=== PATIENT | female | born 2000 | race African-American/Black ===

== ENCOUNTER 2021-03-26 12:49 | Emergency (ER) | payer OTHER, SELFPAY ==
--- NOTE | ~2021-03-26 | XR_ITS ---
EXAMINATION: XR foot RT min 3V EXAM DATE: 03/26/2021 13:08 INDICATION: Fall 5 days ago. Pain top of right foot. Initial encounter. TECHNIQUE: Right foot dorsoplantar, lateral and oblique projections obtained and reviewed. There is no prior study for comparison. FINDINGS: Right metatarsal bones unremarkable. There are no acute fractures or dislocations identif ied. There is no subcutaneous gas. The soft tissue is unremarkable. There are no radiopaque forei gn bodies. IMPRESSION: No acute osseous findings. Reviewed, dictated and finalized at location B. IMPRESSION: No acute osseous findings.
--- NOTE | 2021-03-26 13:04 | ED.LOWEXIN ---
HPI - Extremity Injury (Lower) General Chief Complaint: Extremity Injury, Lower Stated Complaint: injured knees and foot Source: patient Mode of arrival: ambulatory Limitations: no limitations History of Present Illness HPI Narrative: Andrew Teresa is a 20 yo female who fell 5 days ago and has pain on top of R foot. She wants her foot to be X-rayed as it has not improved.Mild bruising across dorsum, more pain with walking on the lateral side of R foot Related Data Allergies Allergy/AdvReac Type Severity Reaction Status Date / Time No Known Allergies Allergy Verified 08/10/19 16:21 Review of Systems Review of Systems: CONSTITUTIONAL: Denies fever, chills, sweats. EYES: Denies visual changes, redness, discharge. ENT: Denies rhinorrhea, congestion, sore throat, otalgia. CARDIOVASCULAR: Denies chest pain, palpitations, edema. RESPIRATORY: Denies dyspnea, wheezing, cough GASTROINTESTINAL: Denies abdominal pain, nausea, vomiting, diarrhea. GENITOURINARY: Denies dysuria, hematuria, abnormal discharge SKIN: Denies rash or itching. NEUROLOGIC: Denies numbness, or focal weakness. PSYCHIATRIC: Denies anxiety or depression. Right foot pain on top of foot PMFSH Past Medical History Medical History No acute medical problems Family History Family History Other Hypertension Social History Social History Smoking status: Never smoker Alcohol intake: never Substance use: never Gender identity (if verbalized by the patient): Female Comments At time of signature, I agree with nursing past medical, surgical, social and family history. There is no relevant family history pertinent to the presenting complaint. Exam Narrative: GENERAL: This is a well-nourished, well-developed patient, in mild distress. HEAD: normocephalic, atraumatic. EYES: PERRL. Sclera clear/white. Vision is grossly intact. EARS: External ears normal, . Hearing grossly intact. NOSE: External nose normal without nasal discharge, nares without redness, no rhinorrhea. THROAT: Mucous membranes moist, NECK: Neck supple, non-tender CARDIOVASCULAR: Regular rate and rhythm without murmurs, gallops, or rubs. RESPIRATORY: Clear to auscultation. Breath sounds equal bilaterally. No wheezes, rales, or rhonchi. GASTROINTESTINAL: Abdomen soft, SKIN: warm, intact with no suspicious lesions or rash, good texture and turgor. NEURO: awake, alert, and oriented to person, place and time. There were no obvious focal neurologic abnormalities. Steady gait EXTREMITIES: Normal range of motion. Pain on lateral side of foot with walking mild bruising on dorsum lateral side able to move toes good color good pulse. Bilateral knee abrasions that are healing, band aids placed across the abrasions BACK: Nontender without deformity Course Course Emergency Course: Patient comes 5 days post fall were abraded needs and pain in the right top of foot X-ray of right foot shows no abnormalities no fractures no subluxation Marlo wrap to right foot encouraged to take Motrin, and wear supportive shoes for pain Vital Signs Vital signs: Vital Signs Temperature 98.9 F 03/26/21 13:10 Pulse Rate 74 03/26/21 13:10 Respiratory Rate 16 03/26/21 13:10 Blood Pressure 136/88 03/26/21 13:10 Pulse Oximetry 100 03/26/21 13:10 Temperature 98.9 F 03/26/21 13:10 Pulse Rate 74 03/26/21 13:10 Respiratory Rate 16 03/26/21 13:10 Blood Pressure 136/88 03/26/21 13:10 Pulse Oximetry 100 03/26/21 13:10 MDM - Extremity Injury (Lower) Differential Diagnosis Differential diagnosis: Likely ankle sprain and strain, puncture wound of foot, fracture of toe and ankle fracture Critical Care Time Critical Care Time Critical Care Time: No Discharge Plan Discharge Clinical Impression: Foot sprain Qualifiers: [facility]
[2021-03-26 13:10] VITALS: BP 136/88; PULSE 74; RESP 16; TEMP 37.2; O2SAT 100
== END 2021-03-26 13:29 | disposition home or self-care (01) ==
PROVIDERS: Emergency Provider Nurse Practitioner
DX: S93.601A Unspecified sprain of right foot, initial encounter (principal); W19.XXXA Unspecified fall, initial encounter
CPT/HCPCS: 73630; 99213; G0463

== ENCOUNTER 2021-05-18 17:59 | Emergency (ER) | payer OTHER, SELFPAY ==
[2021-05-18 18:05] VITALS: BP 118/62; PULSE 75; RESP 12; TEMP 37.2; O2SAT 100
--- NOTE | 2021-05-18 18:53 | ED.URI ---
HPI - URI/Sore Throat General Chief Complaint: Upper Respiratory Infection Stated Complaint: no voice Source: patient and RN notes reviewed Mode of arrival: ambulatory History of Present Illness HPI Narrative: This is a 20-year-old female presented to urgent care with complaints of hoarseness since . She does not have any fevers runny nose cough and has been gargling at home with salt water with no results. The patient denies SOB, CP, palpitation, extremity numbness, lightheadedness, dizziness, constipation, diarrhea, chills, or fever. Related Data Allergies Allergy/AdvReac Type Severity Reaction Status Date / Time No Known Allergies Allergy Verified 08/10/19 16:21 Review of Systems Review of Systems: A 14 organ system Review of Systems was performed and pertinent positives included in the HPI, otherwise remaining ROS is negative. [facility] Past Medical History Medical History No acute medical problems Family History Family History Other Hypertension Social History Social History Smoking status: Never smoker Alcohol intake: never Substance use: never Gender identity (if verbalized by the patient): Female Exam Narrative: GENERAL: This is a well-nourished, well-developed patient, in no apparent distress. HEAD: normocephalic, atraumatic. EYES: PERRL. Sclera clear/white. Vision is grossly intact. EARS: External ears normal, auditory canals clear and without drainage, TMs normal without perforation. Hearing grossly intact. NOSE: External nose normal with no obvious nasal discharge, nares without redness, no rhinorrhea. THROAT: Mucous membranes moist, posterior pharynx edematous. Hoarseness NECK: Neck supple, non-tender without lymphadenopathy, masses or thyromegaly. CARDIOVASCULAR: Regular rate and rhythm without murmurs, gallops, or rubs. RESPIRATORY: Clear to auscultation. Breath sounds equal bilaterally. No wheezes, rales, or rhonchi. GASTROINTESTINAL: Abdomen soft, non-tender, nondistended. Bowel sounds are active. No hepato-splenomegaly, or palpable masses. No guarding. SKIN: warm, intact with no suspicious lesions or rash, good texture and turgor. NEURO: awake, alert, and oriented to person, place and time. There were no obvious focal neurologic abnormalities. Steady gait EXTREMITIES: Normal range of motion. No edema. No calf tenderness. Negative Homans sign bilaterally. BACK: Nontender without deformity or crepitance. No flank tenderness. Course Course Emergency Course: Patient will be given dexamethasone 20 mg for 2 days Vital Signs Vital signs: Vital Signs Temperature 99.0 F 05/18/21 18:05 Pulse Rate 75 05/18/21 18:05 Respiratory Rate 12 05/18/21 18:05 Blood Pressure 118/62 05/18/21 18:05 Pulse Oximetry 100 05/18/21 18:05 Temperature 99.0 F 05/18/21 18:05 Pulse Rate 75 05/18/21 18:05 Respiratory Rate 12 05/18/21 18:05 Blood Pressure 118/62 05/18/21 18:05 Pulse Oximetry 100 05/18/21 18:05 MDM - URI/Sore Throat Differential Diagnosis Differential diagnosis: Likely upper respiratory infection, croup, influenza and other (Laryngitis) Discharge Plan Discharge Clinical Impression: Laryngitis Patient Disposition: Home, Self-Care Condition: Stable Instructions: Antibiotic Form, Croup (ED) Additional Instructions: How is croup treated? ? The main treatments for croup are aimed at making sure that your child is getting enough oxygen. To do that, the doctor or nurse might give your child: ?Moist air or oxygen to breathe ?Medicines to reduce swelling or open up the airways The doctor will probably not offer antibiotics, because croup is caused by viruses, and antibiotics do not work on viruses. Prescriptions: New dexamethasone 20 mg tablet 20 mg PO DAILY 2 Days Q
== END 2021-05-18 18:57 | disposition home or self-care (01) ==
PROVIDERS: Emergency Provider Nurse Practitioner
DX: J04.0 Acute laryngitis (principal)
CPT/HCPCS: 99213; G0463